=== PATIENT | male | born 1985 | race Asian ===

== ENCOUNTER → 2017-02-27 | Outpatient (CLI) | payer OTHER ==
[~2017-02-27] MED LIST: ALBU17AE3 IH; AMOX500C2 PO; AZIT-21 PO; BUTA1TAB46 PO; BUTA1TAB55 PO; DICL50TA4 PO; FAMO20TA5 PO; GUAI473L29 PO; HYDR1TAB75 PO; IBP600T1 PO; IBP800T PO; IPR14IN INH; METH4TAB PO; NAPR-243 PO; OXYC-309 PO; RIZA10TA23 PO; RT-ALBUINH IH; SULF1TAB38 PO; TRAM50TA2 PO; TRM50T PO
--- NOTE | 2017-02-27 14:58 | Diagnostic Imaging Report ---
Clinical indication: Patient with sinus pressure and headache. Exams: 1: Axial Head CT without IV contrast. 2: Axial CT scan of the maxillofacial structures with coronal reformatted images. Comparison: None. Findings: Head CT: There is no evidence of acute cerebral infarct, intracranial hemorrhage, or gross mass effect. There is normal gallardo-white matter distinction. The brain parenchymal volume appears appropriate for patient's age. There is no significant midline shift or herniation. The visualized [place] vascular structures have normal flow void appearance. There is no evidence of hydrocephalus. The basal cisterns are unremarkable. The skull, extracranial soft tissue, and orbits are unremarkable. Maxillofacial CT: There is mild mucosal thickening involving both maxillary sinuses. There is minimal mucosal thickening involving the anterior aspect of the sphenoid sinus. There is mild mucosal thickening involving the ethmoid sinus. There is jose bullosa of both middle nasal turbinates. There is mild mucosal thickening in the left nasal cavity. The nasal septum is minimally deviated toward the left. The orbits and globes are unremarkable. The extracranial soft tissues are unremarkable. The skull and temporal bone structures show no significant abnormality. Impression: 1: Unremarkable CT scan of the brain. 2: Mild paranasal sinus disease involving the ethmoid sinus, both maxillary sinuses, and sphenoid sinus. 3: Jose bullosa of both middle nasal turbinates. Dictated by: Dictated on workstation # [id number]
== END ==
LOC: RAD 13:05
PROVIDERS: ATTEND Family Medicine
DX: J34.9 Unspecified disorder of nose and nasal sinuses (principal); R51 Headache
CPT/HCPCS: 70450; 70486

== ENCOUNTER 2017-05-19 22:49 | Emergency (ER) | payer OTHER ==
[~2017-05-19] VITALS: Ht 175.3 cm; Wt 99.8 kg
--- OUTSIDE RECORDS SUMMARY | 2017-05-19 22:55 | XMS REPORT | Continuity of Care Document ---
Author Author [facility] Organization [facility] Address Unknown Phone Unavailable Allergies Active Description Code Type Severity Reaction Onset Reported/Identified Relationship to Patient Clinical Status Yes No Known Drug Allergies [id number] Drug Allergy Unknown N/ A 09/18/2011 Medications Problems Date Dx Coded Attending Type Code Diagnosis Diagnosed By 04/24/2013 MARIA LORENZO, RA Bazzi Ot 784.0 HEADACHE 06/26/2013 KELLY PADILLA DO Ot 493.90 ASTHMA, UNSPECIFIED 06/26/2013 KELLY PADILLA DO Ot 786.05 SHORTNESS OF BREATH 04/24/2016 VANBECELAERE, VIRIDIANA M PERINATAL EDUCATOR Ot 789.01 ABDOMINAL PAIN, RIGHT UPPER QUADRANT 04/24/2016 VANBECELAERE, VIRIDIANA M PERINATAL EDUCATOR Ot 786.07 WHEEZING 04/24/2016 VANBECELAERE, VIRIDIANA M PERINATAL EDUCATOR Ot 786.2 COUGH 04/24/2016 VANBECELAERE, VIRIDIANA M PERINATAL EDUCATOR Ot 789.01 ABDOMINAL PAIN, RIGHT UPPER QUADRANT 04/24/2016 VANBECELAERE, VIRIDIANA M PERINATAL EDUCATOR Ot 786.07 WHEEZING 04/24/2016 VANBECELAERE, VIRIDIANA M PERINATAL EDUCATOR Ot 786.2 COUGH 04/25/2016 VANBECELAERE, VIRIDIANA M PERINATAL EDUCATOR Ot 789.01 ABDOMINAL PAIN, RIGHT UPPER QUADRANT 04/25/2016 VANBECELAERE, VIRIDIANA M PERINATAL EDUCATOR Ot 786.07 WHEEZING 04/25/2016 VANBECELAERE, VIRIDIANA M PERINATAL EDUCATOR Ot 786.2 COUGH 05/01/2016 AFSANEH LORENZO, JAMISON Hoang Ot N28.1 CYST OF KIDNEY, ACQUIRED 05/01/2016 AFSANEH LORENZO, JAMISON Hoang Ot R31.9 HEMATURIA, UNSPECIFIED 05/21/2016 AFSANEH LORENZO, JAMISON Hoang Ot R10.31 RIGHT LOWER QUADRANT PAIN 05/21/2016 JAMISON SHELBY MD Ot R10.32 LEFT LOWER QUADRANT PAIN 05/21/2016 AFSANEH LORENZO, JAMISON Hoang Ot R31.9 HEMATURIA, UNSPECIFIED 02/26/2017 VANDYLAN VIRIDIANA M PERINATAL EDUCATOR Ot 789.01 ABDOMINAL PAIN, RIGHT UPPER QUADRANT 02/26/2017 VANVIRIDIANA RICHARDSON PERINATAL EDUCATOR Ot 786.07 WHEEZING 02/26/2017 VIRIDIANA PADRON PERINATAL EDUCATOR Ot 786.2 COUGH 02/26/2017 AFSANEH LORENZO, JAMISON Hoang Ot R10.31 RIGHT LOWER QUADRANT PAIN 02/26/2017 JAMISON SHELBY MD Ot R10.32 LEFT LOWER QUADRANT PAIN 02/26/2017 JAMISON SHELBY MD Ot R31.9 HEMATURIA, UNSPECIFIED 02/26/2017 JAMISON SHELBY MD Ot N28.1 CYST OF KIDNEY, ACQUIRED 02/26/2017 JAMISON SHELBY MD Ot R31.9 HEMATURIA, UNSPECIFIED Procedures Results Encounters ACCT No. Visit Date/Time Discharge Status Pt. Type Provider Facility Loc./Unit Complaint [id number] 02/27/2017 13:05:00 2016 23:59:59 CLS Outpatient JEFFREY DSOUZA DO [facility] RAD CEPHALGIA,SINUS PAIN/ PRESSURE [id number] 05/01/2016 12:22:00 2015 23:59:59 CLS Outpatient JAMISON SHELBY MD [facility] RAD HEMATURIA, RIGHT RENAL CYST [id number] 04/25/2016 08:31:00 2015 23:59:59 CLS Outpatient JAMISON SHELBY MD [facility] RAD BACK PAIN [id number] 09/02/2013 09:42:00 2013 23:59:59 CLS Outpatient VIRIDIANA PADRON PERINATAL EDUCATOR [facility] RAD COUGH,WHEEZING [id number] 08/26/2013 08:09:00 2013 23:59:59 CLS Outpatient VIRIDIANA PADRON PERINATAL EDUCATOR [facility] RAD ABDOMINAL PAIN R UPPER QUAD PAIN POSITIVE RIVAS S [id number] 06/26/2013 01:27:00 2013 04:22:00 DIS Emergency KELLY PADILLA DO [facility] ER SOA [id number] 04/24/2013 11:27:00 2012 15:02:00 DIS Emergency RA SIFUENTES MD [facility] ER HEADACHE [id number] 10/20/2012 17:44:00 2012 22:36:00 DIS Emergency [id number] 05/19/2017 22:51:00 ACT Emergency JACQUIE MICHAEL MD [facility] ER POSS BUG BITE ON BACK OF NECK
[2017-05-19] MEDS ORDERED: DEXAMETHASONE 10 MG/ML (DECADRON) 1 ML VIAL ONE (22:56)
[2017-05-19] MEDS ORDERED: DEXAMETHASONE PF 10 MG/ML (DECADRON) VIAL IM STA (23:02)
[2017-05-19] MEDS ORDERED: ACETAMINOPHEN 325 MG TABLET/CAPLET (TYLENOL) PO STA (23:02)
[2017-05-19] MEDS ORDERED: KETOROLAC 60 MG/2 ML VIAL IM STA (23:02)
[2017-05-19] MEDS ORDERED: HYDROcodone/APAP 7.5 MG/325 MG (LORTAB, LORCET PLUS) TABLET PO STA (23:34)
--- NOTE | 2017-05-19 23:43 | ED General ---
General Chief Complaint: Bite-Animal/Human/Insect Stated Complaint: POSS BUG BITE ON BACK OF NECK Nursing Triage Note: PT TO ED 5 W/ FRIEND FOR C/O PAIN IN WRISTS ET ARMS ONSET AFTER BEING BIT BY A "FLYING BUG" X2 DAYS AGO. DENIES KNOWING WHAT KIND OF BUG BIT HIM. STATES HAS TAKEN IBUPROFEN 200MG YESTERDAY FOR PAIN BUT DENIES IMPROVEMENT. Nursing Sepsis Screen: No Definite Risk Source of Information: Patient Exam Limitations: No Limitations History of Present Illness Time Seen by Provider: 22:57 Initial Comments Here with report of a bite that occurred Thursday to the right side of the neck and has had neck pain and shoulder pain as well as upper limb pain since. Saw chiropractor today and that did not help. Take ibuprofen 200 mg yesterday and that did not help. He is not sure what's going on but thinks it's an allergic reaction to the bug bite or some other type of reaction to the bug bite. Apparently a flying insect landed on his neck on Thursday and he felt it. He was able to shoo away but afterwards had a red spot that has subsequently resolved. Pain to the neck, shoulders and upper extremities has persisted since especially in the joints of the upper extremities. Denies fevers, chills, vomiting, breathing problems or other concerns. Denies cough, runny nose or sore throat. Timing/Duration: 2-3 Days Severity: Moderate Associated Systoms: No Cough, No Fever/Chills, Malaise, No Nausea/Vomiting, No Shortness of Air, No Weakness Allergies and Home Medications Allergies Coded Allergies: No Known Drug Allergies (Unverified , 09/18/11) Home Medications Albuterol 17 Gm Inh, 2 SPRAY IH Q 4 HOURS PRN for SHORTNESS OF BREATH, #1 FOR BREATHING Prescribed by: KELLY PADILLA on 06/26/13413 Albuterol Sulfate 1 Puff Puff, 1 PUFF IH, (Reported) Ibuprofen 800 Mg Tab, 800 MG PO Q8HR PRN for PAIN, #20 Prescribed by: RA LOW on 04/24/13 7017 Methylprednisolone 4 Mg/Dose-Pack Tab.ds.pk, 0 PO UD, #1 Prescribed by: KELLY PADILLA on 06/26/13413 Constitutional: see HPI, No chills, No fever, malaise EENTM: no symptoms reported Respiratory: no symptoms reported Cardiovascular: no symptoms reported Gastrointestinal: no symptoms reported Genitourinary: no symptoms reported Musculoskeletal: see HPI, joint pain, muscle pain, muscle stiffness Skin: see HPI Psychiatric/Neurological: No Symptoms Reported Past [id number]-[id number] Hx Patient Social History Alcohol Use: Denies Use Recreational Drug Use: No Smoking Status: Current Everyday Smoker Type Used: Electronic/Vapor Recent Foreign Travel: No Contact w/Someone Who Travel: No Recent Infectious Disease Expo: No Recent Hopitalizations: No Physical Abuse: No Sexual Abuse: No Mistreated: No Fear: No Seasonal Allergies Seasonal Allergies: No Surgeries History of Surgeries: Yes (RIGHT KNEE) Respiratory History of Respiratory Disorde: Yes Respiratory Disorders: Asthma Cardiovascular History of Cardiac Disorders: No Neurological History of Neurological Disord: Yes Reproductive System Sexually Transmitted Disease: No Gastrointestinal History of Gastrointestinal Di: No Musculoskeletal History of Musculoskeletal Dis: No Endocrine History of Endocrine Disorders: No Cancer History of Cancer: No Psychosocial History of Psychiatric Problem: No Suicide Risk Score: 0 Integumentary History of Skin or Integumenta: No Blood Transfusions History of Blood Disorders: No Reviewed Nursing Assessment Reviewed/Agree w Nursing PMH: Yes Family Medical History Significant Family History: No Pertinent Family Hx Physical Exam Vital Signs Vital Sign - Last 12Hours 05/19/17 22:55 Temp 98.3 Pulse 85 Resp 20 B/P (MAP) 142/103 Pulse Ox 98 O2 Delivery Room Air Capillary Refill : Less Than 3 Seconds General Appearance: No Apparent Distress, WD/WN HEENT: PERRL/EOMI, Pharynx Normal, Other (canal is red on the left near the TM is normal. Moderate nasal congestion bilateral with clear rhinorrhea and moderate erythema.) Neck: Supple, No Lymphadenopathy (L), No Lymphadenopathy (R), Tender Lateral, No Tender Midline Respiratory: Lungs Clear, Normal Breath Sounds Cardiovascular: Regular Rate, Rhythm, No Murmur Gastrointestinal: Non Tender, Soft Back: Normal Inspection, No CVA Tenderness, No Vertebral Tenderness Extremity: Normal Range of Motion, Other (tender to the wrist and elbows bilaterally as well as shoulders bilateral.) Neurologic/Psychiatric: Alert, Oriented x3 Skin: Normal Color, Warm/Dry, Other (no obvious lesion on the neck.) Progress/Results/Core Measures Suspected Sepsis Recent Fever Within 48 Hours: No Infection Criteria Present: None New/Unexplained Altered Menta: No Sepsis Screen: No Definite Risk Sepsis Diagnosis: SIRS Temperature:98.3 Pulse: 85 Respiratory Rate: 20 Blood Pressure 142 /103 Mean: 116 Results/Orders My Orders Orders - JACQUIE MICHAEL MD Ketorolac Injection (Toradol Injection) (05/19/17 23:02) Dexamethasone Pf Injection (Decadron Pf (05/19/17 23:02) Acetaminophen Tablet/Caplet (Tylenol T (05/19/17 23:02) Dexamethasone Injection (Decadron Inject (05/19/17 22:56) Hydrocodone/Apap 7.5/325 Tab (Lortab 7. (05/19/17 23:34) Vital Signs/I&O Vital Sign - Last 12Hours 05/19/17 22:55 Temp 98.3 Pulse 85 Resp 20 B/P (MAP) 142/103 Pulse Ox 98 O2 Delivery Room Air Capillary Refill : Less Than 3 Seconds Blood Pressure Mean: 116 Progress Note : Progress Note Seen and evaluated. Toradol 60 mg IM and Decadron 10 mg IM ordered. Tylenol 650 mg by mouth. 2340: Pain not improved. Hydrocodone 7.5 one tab by mouth given. Patient will try home and would like to go home. Discharged home with return precautions. Patient verbalize understanding instructions and agreement with plan. Departure Impression Impression: Primary Impression: Myalgia Additional Impressions: Bug bite Qualified Codes: W57.XXXA - Bitten or stung by nonvenomous insect and other nonvenomous arthropods, initial encounter Arthralgia Qualified Codes: M25.511 - Pain in right shoulder; M25.512 - Pain in left shoulder Disposition: 01 HOME, SELF-CARE Condition: Stable Departure-Patient Inst. Decision time for Depature: 23:44 Referrals: JEFFREY DSOUZA DO (PCP/Family) Primary Care Physician Patient Instructions: Insect Bites and Stings (DC), Joint Pain, Muscle and Bone Pain (DC) Add. Discharge Instructions: All discharge instructions reviewed with patient and/or family. Voiced understanding. You may take Tylenol (acetaminophen) 1000 mg every 6 hours as needed for pain. You may take ibuprofen 800 mg every 8 hours as needed for pain. Drink plenty of fluids. Follow-up with your DrSiria in one to 2 days for recheck and further evaluation. Return for worse pain, fever, weakness, breathing problems or other concerns as needed. JACQUIE MICHAEL MD May 19, 2017 23:43
[2017-05-19 23:48] VITALS: BP 0/0
== END 2017-05-19 23:48 | disposition home or self-care (01) ==
LOC: EDUNIT# 22:49 → ER 22:51
DX: M25.512 Pain in left shoulder (principal); M79.1 Myalgia; J45.909 Unspecified asthma, uncomplicated; F17.210 Nicotine dependence, cigarettes, uncomplicated; W57.XXXA Bitten or stung by nonvenomous insect and other nonvenomous arthropods, initial encounter
CPT/HCPCS: 99284